=== PATIENT | male | born 1950 | race Caucasian/White ===

== ENCOUNTER 2017-02-04 10:18 | Outpatient (CLI) | payer MEDICARE ==
--- NOTE | 2017-02-04 12:22 | RAD ---
FOUR VIEWS OF THE LEFT WRIST: Date: 02-04-17 Comparison: None. History: Fell two weeks ago, continued pain. FINDINGS: Alignment appears normal on the lateral exam. Posterior soft tissue swelling is noted. There is a sm all osseous density projecting along the dorsal aspect of the wrist measuring 2-3 mm. This may repre sent a small triquetral chip fracture. There is a subchondral area of cystic change within the proxi mal capitate, likely degenerative in nature. There is mild radiocarpal joint space narrowing. There is no widening of scapholunate interval. No discrete scaphoid fracture. IMPRESSION: Coarse and dorsal soft tissue swelling with an associated triquetral chip fracture. Please correlate for dorsal point tenderness in the region of the mid carpus. If there is persistent pain in the sg tomic snuff box, MRI or bone scan may be beneficial. POS: [facility]
== END 2017-02-04 10:19 | disposition home or self-care (01) ==
LOC: MADRAD 10:18
PROVIDERS: ATTEND General Practice
DX: M25.532 Pain in left wrist (principal); S62.102A Fracture of unspecified carpal bone, left wrist, initial encounter for closed fracture